=== PATIENT | male | born 1945 | race African-American/Black ===

== ENCOUNTER 2018-05-22 04:56 | Emergency (ER) | payer OTHER ==
[~2018-05-22] VITALS: Ht 182.9 cm; Wt 120.2 kg
[2018-05-22 06:16] LABS: Basophils # (auto) 0 uL; Basophils % (auto) 0.5 % (0.0-2.0); Eosinophils # (auto) 0.1 uL; Eosinophils % (auto) 1.4 % (0.0-7.0); Hematocrit 43.9 % (41.0-53.0); Hemoglobin 15.2 g/dL (13.5-17.5); Lymphocytes # (auto) 1.2 uL; Mean Corpuscular Hemoglobin 32.9 pg (28.0-32.0); Mean Corpuscular Hgb Conc. 34.6 g/dL (32.0-36.0); Mean Corpuscular Volume 95.1 fL (80.0-100.0); Monocytes # (auto) 0.5 uL; Monocytes % (auto) 7.4 % (0.0-12.0); Neutrophils # (auto) 4.5 uL; Neutrophils % (auto) 71.7 % (37.0-80.0); Nucleated Red Blood Cells % 0.1 %; Platelet Count (auto) 157 10^3/uL (140-450); Red Blood Cells 4.62 10^6/uL (4.5-5.90); White Blood Cell 6.3 10^3/uL (4.4-10.8)
[2018-05-22 06:41] LABS: Alanine Aminotransferase 22 U/L (16-61); Albumin 3.1 g/dL (3.4-5.0); Anion Gap 7 (5-15); BUN/Creatinine Ratio 18.3; Blood Urea Nitrogen 17 mg/dL (7-18); Calcium 8.5 mg/dL (8.5-10.1); Carbon Dioxide 27 mmol/L (21-32); Chloride 108 mmol/L (98-107); GFR African American 102 mL/min; GFR Non-African American 85 mL/min; Glucose 114 mg/dL (74-106); Potassium 3.8 mmol/L (3.5-5.1); Sodium 142 mmol/L (136-145)
[2018-05-22 06:54] LABS: Alkaline Phosphatase 96 U/L (45-117); Aspartate Aminotransferase 19 U/L (15-37); Bilirubin, Total 1.5 mg/dL (0.2-1.0); Total Protein 6.7 g/dL (6.4-8.2)
[2018-05-22] MEDS ORDERED: SODIUM CHLORIDE 0.9% 1,000 ML IV ONE (07:33)
[2018-05-22] MEDS ORDERED: MORPHINE SULFATE 4 MG/ML SYR/VIAL IV ONE (07:45)
[2018-05-22] MEDS ORDERED: METOCLOPRAMIDE HCL 5MG/ml INJ 2ml VIAL IV ONE (07:45)
[2018-05-22 08:09] LABS: Urine Bacteria NONE SEEN /hpf (None Seen); Urine Blood Negative /uL (Negative); Urine Mucus FEW (None Seen); Urine Specific Gravity 1.029 (1.001-1.035); Urine WBC <1 /hpf (0 - 3)
[2018-05-22 12:22] VITALS: BP 155/83
== END 2018-05-22 12:58 | disposition home or self-care (01) ==
LOC: ER 04:58
DX: K45.8 Other specified abdominal hernia without obstruction or gangrene (principal); K59.01 Slow transit constipation; K40.90 Unilateral inguinal hernia, without obstruction or gangrene, not specified as recurrent; M47.896 Other spondylosis, lumbar region; R07.89 Other chest pain; Z90.89 Acquired absence of other organs
CPT/HCPCS: 36415; 71045; 74176; 80053; 81001; 84443; 84484; 85025; 93005; 94761; 99285; J7030

== ENCOUNTER 2022-04-13 16:46 | Inpatient (IN) | payer MEDICARE, OTHER ==
[~2022-04-13] VITALS: Ht 188 cm; Wt 126.8 kg
[2022-04-13 17:24] LABS: Basophils # (auto) 0.1 10 ^3/uL (0-0.2); Basophils % (auto) 0.8 % (0.0-2.0); Eosinophils # (auto) 0.1 10 ^3/uL (0-0.8); Eosinophils % (auto) 1.2 % (0.0-7.0); Hematocrit 44.2 % (41.0-53.0); Hemoglobin 14.6 g/dL (13.5-17.5); Lymphocytes # (auto) 1.5 10 ^3/uL (0.4-5.4); Mean Corpuscular Hemoglobin 31.3 pg (28.0-32.0); Mean Corpuscular Hgb Conc. 32.9 g/dL (32.0-36.0); Mean Corpuscular Volume 95.1 fL (80.0-100.0); Monocytes # (auto) 0.5 10 ^3/uL (0-1.3); Monocytes % (auto) 5.9 % (0.0-12.0); Neutrophils # (auto) 5.6 10 ^3/uL (1.6-8.6); Neutrophils % (auto) 72.1 % (37.0-80.0); Red Blood Cells 4.65 10^6/uL (4.5-5.90); Red Cell Distribution Width 13.7 % (11.8-14.3); White Blood Cell 7.7 10^3/uL (4.4-10.8)
[2022-04-13 17:41] LABS: INR 0.96 (0.9-1.15); Partial Thromboplastin Time 28.1 sec (24.6-33.4)
[2022-04-13 17:46] LABS: Albumin 3.3 g/dL (3.4-5.0); BUN/Creatinine Ratio 14.9; Calcium 8.3 mg/dL (8.5-10.1); Potassium 4.6 mmol/L (3.5-5.1)
[2022-04-13 17:49] LABS: Bilirubin, Total 1.8 mg/dL (0.2-1.0); Total Protein 6.5 g/dL (6.4-8.2)
[2022-04-13] MEDS ORDERED: NITROGLYCERIN 0.4 MG SL TAB SL ONE (19:30)
[2022-04-13] MEDS ORDERED: ASPirin 325 MG TAB PO ONE (19:30)
[2022-04-13 20:53] LABS: Urine Bacteria NONE SEEN /hpf (None Seen); Urine Blood Negative /uL (Negative); Urine Specific Gravity 1.014 (1.001-1.035); Urine WBC <1 /hpf (0 - 3)
[2022-04-13] MEDS ORDERED: FIN5T PO (21:56)
[2022-04-13] MEDS ORDERED: TAMS0.4C36 PO (21:56)
[2022-04-13] MEDS ORDERED: ONDANSETRON HCL 4 MG/2 ML VIAL IV PRN (22:00)
[2022-04-13] MEDS ORDERED: ACETAMINOPHEN 325 MG TAB PO PRN (22:00)
[2022-04-13] MEDS ORDERED: MORPHINE SULFATE INJ 2 MG/ml SYRG IV PRN (22:00)
[2022-04-13] MEDS ORDERED: DOCUSATE SOD 100 MG CAP PO PRN (22:00)
[2022-04-13] MEDS ORDERED: HYDROcodone-ACET 5/325MG TAB PO PRN (22:00)
[2022-04-13] MEDS ORDERED: NITROGLYCERIN 0.4 MG SL TAB SL PRN (22:00)
[2022-04-13] MEDS: ATORVASTATIN 20 MG TAB PO SCH (23:09)
[2022-04-14] VITALS (7 sets, daily range): BP systolic 128–158; BP diastolic 65–89
[2022-04-14 05:59] LABS: Basophils # (auto) 0 10 ^3/uL (0-0.2); Basophils % (auto) 0.5 % (0.0-2.0); Calcium 8.3 mg/dL (8.5-10.1); Eosinophils # (auto) 0.2 10 ^3/uL (0-0.8); Eosinophils % (auto) 3.2 % (0.0-7.0); Hematocrit 40.7 % (41.0-53.0); Lymphocytes # (auto) 1.8 10 ^3/uL (0.4-5.4); Lymphocytes % (auto) 29.2 % (10.0-50.0); Mean Corpuscular Hemoglobin 31.8 pg (28.0-32.0); Mean Corpuscular Hgb Conc. 34.4 g/dL (32.0-36.0); Mean Corpuscular Volume 92.5 fL (80.0-100.0); Monocytes # (auto) 0.6 10 ^3/uL (0-1.3); Monocytes % (auto) 9.1 % (0.0-12.0); Neutrophils # (auto) 3.6 10 ^3/uL (1.6-8.6); Nucleated Red Blood Cells % 0.1 %; Potassium 3.6 mmol/L (3.5-5.1); Red Cell Distribution Width 13.5 % (11.8-14.3); White Blood Cell 6.2 10^3/uL (4.4-10.8)
[2022-04-14] MEDS: TAMSULOSIN HYDROCHLORIDE 0.4 MG CAP PO SCH (09:12)
[2022-04-14] MEDS: FINASTERIDE 5 MG TAB PO SCH (09:12)
[2022-04-14] MEDS: ASPirin 81 mg TAB PO SCH (09:12)
[2022-04-14 09:19] LABS: Cholesterol 178 mg/dL (< 200)
[2022-04-14 09:22] LABS: HDL Cholesterol 64 mg/dL (40-59); LDL Cholesterol 107 mg/dL (< 100); Triglycerides 81 mg/dL (< 150)
[2022-04-14] MEDS ORDERED: IOHEXOL 350 MG/ML 100ML IJ ONE ×2 (13:31→14:09)
[2022-04-14] MEDS ORDERED: LIDOCAINE 2%HCL (LOCAL ANESTH.) INJ 20ML MDV ONE (13:31)
[2022-04-14] MEDS ORDERED: HEPARIN SODIUM (PORCINE) 5000 UNITS/ML 1ML VIAL ONE (13:37)
[2022-04-14] MEDS ORDERED: ANGIOMAX 250 MG VIAL IV ONE (13:37)
[2022-04-14] MEDS ORDERED: SODIUM CHL 0.9% 50 ML ONE (13:38)
[2022-04-14] MEDS ORDERED: MIDAZOLAM HCL 2MG/2ML 2ml VIAL (1mg/ml) ONE (13:38)
[2022-04-14] MEDS ORDERED: fentaNYL CITRATE 100 MCG/2 ML VL ONE (13:38)
[2022-04-14] MEDS ORDERED: VERAPAMIL 2.5MG/ML INJ 2ML VIAL IV ONE (13:38)
[2022-04-14] MEDS ORDERED: TICAGRELOR 90 MG TAB ONE (14:11)
[2022-04-14] MEDS ORDERED: METO25TA36 PO (14:38)
[2022-04-14] MEDS ORDERED: TICA90TA PO (14:38)
[2022-04-14] MEDS ORDERED: ATO40T PO (14:38)
[2022-04-14] MEDS: ATORVASTATIN 20 MG TAB PO SCH (21:55)
[2022-04-14] MEDS: TICAGRELOR 90 MG TAB PO SCH (21:56)
[2022-04-15] MEDS ORDERED: LORATADINE 10 MG TAB PO PRN
[2022-04-15 05:26] VITALS: BP 140/69
[2022-04-15] MEDS: FLUTICASONE PROP NASAL SPR 0.05 % (50MCG) 16GM EACHNOSTRI PRN ×2 (05:42→13:30)
[2022-04-15 08:00] VITALS: BP 152/72
[2022-04-15] MEDS: FINASTERIDE 5 MG TAB PO SCH (08:17)
[2022-04-15] MEDS: ASPirin 81 mg TAB PO SCH (08:17)
[2022-04-15] MEDS: TAMSULOSIN HYDROCHLORIDE 0.4 MG CAP PO SCH (08:18)
[2022-04-15] MEDS: TICAGRELOR 90 MG TAB PO SCH (08:19)
[2022-04-15 09:00] VITALS: BP 152/72
[2022-04-15] MEDS ORDERED: METOPROLOL SUCCINATE XL 50 MG TAB PO SCH (10:00)
[2022-04-15] MEDS ORDERED: METO-6 PO (11:55)
[2022-04-15] MEDS ORDERED: ASPI-325 PO (11:55)
[2022-04-15] MEDS ORDERED: TICA90TA PO (11:55)
[2022-04-15] MEDS ORDERED: ATOR20TA50 PO (11:55)
[2022-04-15] MEDS ORDERED: SACU1TAB PO (11:55)
[2022-04-15 12:34] VITALS: BP 134/71
[2022-04-15 13:37] LABS: BUN/Creatinine Ratio 14.1; Calcium 8.5 mg/dL (8.5-10.1)
[2022-04-15] MEDS ORDERED: SACUBITRIL-VALSARTAN 24mg/26mg TAB PO SCH (22:00)
== END 2022-04-15 15:20 | disposition home or self-care (01) | DRG 247 ==
LOC: ER 16:46 → TELE 21:51 → TELE-WESTW 04-14 15:53
PROVIDERS: ADMIT Nurse Practitioner Family; ATTEND Internal Medicine
PROC: 4A023N7 Measurement of Cardiac Sampling and Pressure, Left Heart, Percutaneous Approach (ICD-10-PCS; principal; 2022-04-14)
PROC: 027035Z Dilation of Coronary Artery, One Artery with Two Drug-eluting Intraluminal Devices, Percutaneous Approach (ICD-10-PCS; 2022-04-14)
PROC: B2111ZZ Fluoroscopy of Multiple Coronary Arteries using Low Osmolar Contrast (ICD-10-PCS; 2022-04-14)
PROC: B2151ZZ Fluoroscopy of Left Heart using Low Osmolar Contrast (ICD-10-PCS; 2022-04-14)
DX: I24.9 Acute ischemic heart disease, unspecified (principal); I31.39 Other pericardial effusion (noninflammatory); I50.32 Chronic diastolic (congestive) heart failure; E66.9 Obesity, unspecified; I10 Essential (primary) hypertension; I25.10 Atherosclerotic heart disease of native coronary artery without angina pectoris; Z68.35 Body mass index [BMI] 35.0-35.9, adult; K21.9 Gastro-esophageal reflux disease without esophagitis; N40.0 Benign prostatic hyperplasia without lower urinary tract symptoms; Z79.02 Long term (current) use of antithrombotics/antiplatelets; Z79.82 Long term (current) use of aspirin; Z79.899 Other long term (current) drug therapy; Z87.891 Personal history of nicotine dependence; Z98.84 Bariatric surgery status; Z90.49 Acquired absence of other specified parts of digestive tract
CPT/HCPCS: 36415; 71045; 80048; 80053; 80061; 81001; 83036; 83735; 84443; 84484; 85025; 85610; 85730; 87426; 87804; 92928; 92929; 93005; 93306; 93458; 99152; 99153; C1874; C1887; G0378; J2250

== ENCOUNTER → 2022-07-20 | Outpatient (CLI) | payer MEDICARE, OTHER ==
[~2022-07-20] MED LIST: ASPI-325 PO; ATO40T PO; ATOR20TA50 PO; FIN5T PO; METO-6 PO; METO25TA36 PO; SACU1TAB PO; TAMS0.4C36 PO; TICA90TA PO
== END | disposition home or self-care (01) ==
LOC: XYW 10:03
PROVIDERS: ATTEND Internal Medicine
DX: I08.0 Rheumatic disorders of both mitral and aortic valves (principal); I25.10 Atherosclerotic heart disease of native coronary artery without angina pectoris; I10 Essential (primary) hypertension
CPT/HCPCS: 93306

== ENCOUNTER 2022-09-01 14:17 | Emergency (ER) | payer MEDICARE, OTHER ==
[~2022-09-01] VITALS: Ht 182.9 cm; Wt 118.1 kg
[2022-09-01 14:54] VITALS: BP 165/76
[2022-09-01] MEDS ORDERED: CEPH-510 PO (16:06)
== END 2022-09-01 16:16 | disposition home or self-care (01) ==
LOC: ER 14:17
DX: S23.41XA Sprain of ribs, initial encounter (principal); S80.212A Abrasion, left knee, initial encounter; I10 Essential (primary) hypertension; Z79.899 Other long term (current) drug therapy; Z90.49 Acquired absence of other specified parts of digestive tract; W19.XXXA Unspecified fall, initial encounter; Y93.89 Activity, other specified; Y92.89 Other specified places as the place of occurrence of the external cause; Y99.8 Other external cause status
CPT/HCPCS: 71101; 73562; 93005

== ENCOUNTER 2022-11-19 21:06 | Inpatient (IN) | payer MEDICARE, OTHER ==
[~2022-11-19] VITALS: Ht 182.9 cm; Wt 121.6 kg
[~2022-11-19 21:06] MED LIST changes: +CEPH-510 PO
[2022-11-19] MEDS ORDERED: dilTIAZem 25 MG/5 ML VIAL IV ONE (21:45)
[2022-11-19 22:24] LABS: Basophils # (auto) 0.1 10 ^3/uL (0-0.2); Basophils % (auto) 0.9 % (0.0-2.0); Eosinophils # (auto) 0.2 10 ^3/uL (0-0.8); Eosinophils % (auto) 2.3 % (0.0-7.0); Hematocrit 40.9 % (41.0-53.0); Hemoglobin 13.6 g/dL (13.5-17.5); Lymphocytes # (auto) 1.3 10 ^3/uL (0.4-5.4); Lymphocytes % (auto) 19.6 % (10.0-50.0); Mean Corpuscular Hemoglobin 31.2 pg (28.0-32.0); Mean Corpuscular Hgb Conc. 33.2 g/dL (32.0-36.0); Monocytes # (auto) 0.6 10 ^3/uL (0-1.3); Monocytes % (auto) 9.3 % (0.0-12.0); Neutrophils # (auto) 4.6 10 ^3/uL (1.6-8.6); Neutrophils % (auto) 67.9 % (37.0-80.0); Nucleated Red Blood Cells % 0.1 %; Red Blood Cells 4.35 10^6/uL (4.5-5.90); Red Cell Distribution Width 14.2 % (11.8-14.3); White Blood Cell 6.8 10^3/uL (4.4-10.8)
[2022-11-19 22:38] LABS: INR 1.02 (0.9-1.15); Partial Thromboplastin Time 28.1 sec (24.6-33.4)
[2022-11-19 22:46] LABS: Calcium 8.4 mg/dL (8.5-10.1); Magnesium 2.2 mg/dL (1.6-2.6); Potassium 3.9 mmol/L (3.5-5.1)
[2022-11-19 22:49] LABS: BUN/Creatinine Ratio 17.9 (10.0-20.0); Bilirubin, Total 2.8 mg/dL (0.2-1.0); Total Protein 6.6 g/dL (6.4-8.2)
[2022-11-19] MEDS ORDERED: METOPROLOL TARTRATE 1MG/1ML-5ML VIAL IV ONE (23:00)
[2022-11-20] MEDS ORDERED: ONDANSETRON HCL 4 MG/2 ML VIAL IV PRN (00:15)
[2022-11-20] MEDS ORDERED: FUROSEMIDE 20 MG/2 ML VIAL IV ONE (00:15)
[2022-11-20] MEDS ORDERED: ACETAMINOPHEN 325 MG TAB PO PRN (00:15)
[2022-11-20] MEDS ORDERED: cefTRIAXone 1GM/50ML D5W 50 ML IV ONE (00:15)
[2022-11-20] MEDS ORDERED: HYDROcodone-ACET 5/325MG TAB PO PRN (00:15)
[2022-11-20] MEDS ORDERED: DOCUSATE SOD 100 MG CAP PO PRN (00:15)
[2022-11-20] MEDS ORDERED: MORPHINE SULFATE INJ 2 MG/ml SYRG IV PRN ×2 (00:15→06:30)
[2022-11-20] MEDS: METOPROLOL TARTRATE 1MG/1ML-5ML VIAL IV SCH ×3 (00:58→01:27)
[2022-11-20] MEDS: SODIUM CHLOR 0.9% PF (SALINE LOCK) 10ML VIAL/SYR IV SCH ×2 (06:03→14:02)
[2022-11-20 06:10] LABS: Basophils # (auto) 0 10 ^3/uL (0-0.2); Basophils % (auto) 0.4 % (0.0-2.0); Eosinophils # (auto) 0.2 10 ^3/uL (0-0.8); Eosinophils % (auto) 2.1 % (0.0-7.0); Hematocrit 42.5 % (41.0-53.0); Hemoglobin 14.2 g/dL (13.5-17.5); Lymphocytes # (auto) 1.3 10 ^3/uL (0.4-5.4); Lymphocytes % (auto) 15.5 % (10.0-50.0); Mean Corpuscular Hemoglobin 31.7 pg (28.0-32.0); Mean Corpuscular Hgb Conc. 33.4 g/dL (32.0-36.0); Mean Corpuscular Volume 94.9 fL (80.0-100.0); Monocytes # (auto) 0.7 10 ^3/uL (0-1.3); Monocytes % (auto) 8.3 % (0.0-12.0); Neutrophils # (auto) 6.1 10 ^3/uL (1.6-8.6); Neutrophils % (auto) 73.7 % (37.0-80.0); Nucleated Red Blood Cells % 0.1 %; Red Blood Cells 4.47 10^6/uL (4.5-5.90); Red Cell Distribution Width 13.9 % (11.8-14.3); White Blood Cell 8.3 10^3/uL (4.4-10.8)
[2022-11-20] MEDS ORDERED: NITROGLYCERIN 0.4 MG SL TAB SL PRN (06:30)
[2022-11-20] MEDS ORDERED: dilTIAZem 120MG ER CAP PO ONE (06:30)
[2022-11-20 06:39] LABS: Potassium 3.7 mmol/L (3.5-5.1)
[2022-11-20 06:46] LABS: BUN/Creatinine Ratio 17.3 (10.0-20.0); Bilirubin, Total 2.8 mg/dL (0.2-1.0); Calcium 8.4 mg/dL (8.5-10.1); Total Protein 6.9 g/dL (6.4-8.2)
[2022-11-20] MEDS: FUROSEMIDE 20 MG/2 ML VIAL IV SCH (09:44)
[2022-11-20] MEDS ORDERED: ASPirin 81 mg TAB PO SCH (10:00)
[2022-11-20] MEDS ORDERED: CARVEDILOL 3.125 MG TAB PO SCH (10:00)
[2022-11-20] MEDS ORDERED: CARVEDILOL 12.5 MG TAB PO SCH (10:00)
[2022-11-20] MEDS: FAMOTIDINE (10MG/ML) 2ML VL IV SCH (10:04)
[2022-11-20] MEDS: METOPROLOL TARTRATE 25 MG TAB PO SCH ×2 (16:30→22:20)
[2022-11-20 20:00] VITALS: BP_SYST 108; BP_SYST 135; BP_DIAS 81; BP_DIAS 85
[2022-11-20 22:00] VITALS: BP 108/81
[2022-11-20] MEDS ORDERED: METOPROLOL TARTRATE 25 MG TAB PO SCH (22:00)
[2022-11-20] MEDS: TICAGRELOR 90 MG TAB PO SCH (22:19)
[2022-11-20] MEDS: dilTIAZem HCL 60 MG TAB PO SCH (22:21)
[2022-11-20] MEDS: cefTRIAXone 1GM/50ML D5W 50 ML IV SCH (22:26)
[2022-11-20] MEDS: ATORVASTATIN 20 MG TAB PO SCH (22:40)
[2022-11-21] VITALS (8 sets, daily range): BP systolic 115–142; BP diastolic 80–91
[2022-11-21] MEDS: SODIUM CHLOR 0.9% PF (SALINE LOCK) 10ML VIAL/SYR IV SCH ×4 (02:20→20:41)
[2022-11-21 06:02] LABS: Basophils # (auto) 0 10 ^3/uL (0-0.2); Basophils % (auto) 0.5 % (0.0-2.0); Eosinophils # (auto) 0.2 10 ^3/uL (0-0.8); Eosinophils % (auto) 2.3 % (0.0-7.0); Hematocrit 41.7 % (41.0-53.0); Hemoglobin 14.1 g/dL (13.5-17.5); Lymphocytes # (auto) 1.2 10 ^3/uL (0.4-5.4); Lymphocytes % (auto) 13.6 % (10.0-50.0); Mean Corpuscular Hgb Conc. 33.8 g/dL (32.0-36.0); Mean Corpuscular Volume 94.6 fL (80.0-100.0); Monocytes # (auto) 0.8 10 ^3/uL (0-1.3); Monocytes % (auto) 8.7 % (0.0-12.0); Neutrophils # (auto) 6.6 10 ^3/uL (1.6-8.6); Neutrophils % (auto) 74.9 % (37.0-80.0); Nucleated Red Blood Cells % 0.1 %; Red Blood Cells 4.41 10^6/uL (4.5-5.90); Red Cell Distribution Width 14.2 % (11.8-14.3); White Blood Cell 8.8 10^3/uL (4.4-10.8)
[2022-11-21] MEDS: dilTIAZem HCL 60 MG TAB PO SCH ×2 (06:05→14:11)
[2022-11-21 06:08] LABS: Potassium 4.2 mmol/L (3.5-5.1)
[2022-11-21 06:19] LABS: Albumin 2.9 g/dL (3.4-5.0); BUN/Creatinine Ratio 20.6 (10.0-20.0); Bilirubin, Total 1.9 mg/dL (0.2-1.0); Calcium 8.7 mg/dL (8.5-10.1); Total Protein 6.6 g/dL (6.4-8.2)
[2022-11-21] MEDS: TICAGRELOR 90 MG TAB PO SCH ×2 (09:54→20:39)
[2022-11-21] MEDS: ASPirin-EC 81 mg tab PO SCH (09:54)
[2022-11-21] MEDS: FUROSEMIDE 20 MG/2 ML VIAL IV SCH ×3 (09:54→20:41)
[2022-11-21] MEDS: FAMOTIDINE (10MG/ML) 2ML VL IV SCH (09:54)
[2022-11-21] MEDS: METOPROLOL TARTRATE 25 MG TAB PO SCH (09:55)
[2022-11-21] MEDS ORDERED: FUROSEMIDE 20 MG/2 ML VIAL IV SCH (10:00)
[2022-11-21] MEDS ORDERED: dilTIAZem 120MG ER CAP PO SCH (10:00)
[2022-11-21] MEDS ORDERED: METOPROLOL TARTRATE 1MG/1ML-5ML VIAL IV ONE (11:00)
[2022-11-21] MEDS ORDERED: DIGOXIN (250MCG/ML) 2 ML AMPULE IV ONE (17:15)
[2022-11-21] MEDS: cefTRIAXone 1GM/50ML D5W 50 ML IV SCH (20:38)
[2022-11-21] MEDS: ATORVASTATIN 20 MG TAB PO SCH (20:39)
[2022-11-21] MEDS: METOPROLOL TARTRATE 50 MG TAB PO SCH (20:39)
[2022-11-21] MEDS: ENOXAPARIN SOD 120 MG/0.8 ML SYRINGE SC SCH (20:44)
[2022-11-22 05:00] VITALS: BP 155/89
[2022-11-22] MEDS: SODIUM CHLOR 0.9% PF (SALINE LOCK) 10ML VIAL/SYR IV SCH ×3 (05:44→22:41)
[2022-11-22 05:56] LABS: Potassium 3.3 mmol/L (3.5-5.1)
[2022-11-22 06:03] LABS: Albumin 3.4 g/dL (3.4-5.0); Bilirubin, Total 2.1 mg/dL (0.2-1.0); Calcium 8.8 mg/dL (8.5-10.1); Magnesium 2.1 mg/dL (1.6-2.6)
[2022-11-22 08:00] VITALS: BP 173/98
[2022-11-22] MEDS: TICAGRELOR 90 MG TAB PO SCH ×2 (08:31→22:41)
[2022-11-22] MEDS: FAMOTIDINE (10MG/ML) 2ML VL IV SCH (08:31)
[2022-11-22] MEDS: ASPirin-EC 81 mg tab PO SCH (08:31)
[2022-11-22] MEDS: METOPROLOL TARTRATE 50 MG TAB PO SCH ×2 (08:31→22:42)
[2022-11-22 08:55] VITALS: BP 173/98
[2022-11-22] MEDS: ENOXAPARIN SOD 120 MG/0.8 ML SYRINGE SC SCH ×2 (09:27→22:42)
[2022-11-22] MEDS: FUROSEMIDE 20 MG/2 ML VIAL IV SCH ×2 (09:27→22:41)
[2022-11-22 13:00] VITALS: BP 162/97
[2022-11-22] MEDS ORDERED: POTASSIUM EFFERVESENT TAB 25 MEQ PO ONE (13:00)
[2022-11-22] MEDS ORDERED: SACUBITRIL-VALSARTAN 24mg/26mg TAB PO ONE (13:00)
[2022-11-22] MEDS ORDERED: LABETALOL HCL 5 MG/ML 4ML SYRINGE IV PRN (14:00)
[2022-11-22 16:44] VITALS: BP 122/88
[2022-11-22 22:00] VITALS: BP 146/78
[2022-11-22] MEDS: ATORVASTATIN 20 MG TAB PO SCH (22:41)
[2022-11-22] MEDS: SACUBITRIL-VALSARTAN 24mg/26mg TAB PO SCH (22:41)
[2022-11-23 05:00] VITALS: BP 140/83
[2022-11-23] MEDS: SODIUM CHLOR 0.9% PF (SALINE LOCK) 10ML VIAL/SYR IV SCH (06:07)
[2022-11-23 08:30] VITALS: BP 126/92
[2022-11-23] MEDS: TICAGRELOR 90 MG TAB PO SCH (09:16)
[2022-11-23] MEDS: ASPirin-EC 81 mg tab PO SCH (09:19)
[2022-11-23] MEDS: FUROSEMIDE 20 MG/2 ML VIAL IV SCH (09:19)
[2022-11-23] MEDS: ENOXAPARIN SOD 120 MG/0.8 ML SYRINGE SC SCH (09:19)
[2022-11-23] MEDS: SACUBITRIL-VALSARTAN 24mg/26mg TAB PO SCH (09:19)
[2022-11-23] MEDS ORDERED: DIGOXIN 0.125 MG TAB PO SCH (10:00)
[2022-11-23] MEDS ORDERED: POTASSIUM EFFERVESENT TAB 25 MEQ PO SCH (10:00)
[2022-11-23] MEDS ORDERED: PANTOPRAZOLE 40 MG TAB PO SCH (10:00)
[2022-11-23] MEDS: METOPROLOL TARTRATE 50 MG TAB PO SCH (10:01)
[2022-11-23 10:52] LABS: Hepatitis B Surface Antibody Negative (Negative)
[2022-11-23] MEDS ORDERED: FURO1TAB33 PO (11:07)
[2022-11-23] MEDS ORDERED: MET50T PO (11:07)
[2022-11-23] MEDS ORDERED: SACU1TAB PO (11:07)
[2022-11-23] MEDS ORDERED: APIX5TAB PO (11:07)
[2022-11-23] MEDS ORDERED: DIGO1TAB48 PO (11:07)
[2022-11-23 11:25] LABS: Hepatitis A Total Antibody Negative (Negative)
[2022-11-23 12:17] VITALS: BP 118/61
[2022-11-23 12:42] VITALS: BP 118/61
[2022-11-28 13:39] LABS: Hepatitis C Antibody Negative (Negative)
== END 2022-11-23 13:25 | disposition home or self-care (01) | DRG 291 ==
LOC: ER 21:06 → TELE 11-20 06:23 → TELE-EAST 11-20 17:16
PROVIDERS: ADMIT Nurse Practitioner Family; ATTEND Nurse Practitioner Acute Care
DX: I11.0 Hypertensive heart disease with heart failure (principal); I50.23 Acute on chronic systolic (congestive) heart failure; I25.10 Atherosclerotic heart disease of native coronary artery without angina pectoris; Z20.822 Contact with and (suspected) exposure to COVID-19; E66.01 Morbid (severe) obesity due to excess calories; E78.5 Hyperlipidemia, unspecified; R26.81 Unsteadiness on feet; I48.91 Unspecified atrial fibrillation; N40.0 Benign prostatic hyperplasia without lower urinary tract symptoms; K21.9 Gastro-esophageal reflux disease without esophagitis; I42.0 Dilated cardiomyopathy; Z79.01 Long term (current) use of anticoagulants; Z87.891 Personal history of nicotine dependence; Z95.5 Presence of coronary angioplasty implant and graft; Z98.84 Bariatric surgery status; Z90.49 Acquired absence of other specified parts of digestive tract; Z68.36 Body mass index [BMI] 36.0-36.9, adult
CPT/HCPCS: 36415; 71045; 76705; 80053; 80162; 82728; 83735; 83880; 84443; 84484; 85025; 85610; 85730; 86038; 86704; 86706; 86708; 86803; 87340; 87426; 93005; 93306; 96365; 96375; 96376; 99291; G0378; J0696; J3490